=== PATIENT | male | born 1980 | race Hispanic/Latino ===

== ENCOUNTER 2024-06-01 17:10 | Emergency (ER) | payer BC ==
[~2024-06-01] VITALS: Ht 165.1 cm; Wt 95.7 kg
[2024-06-01 17:56] LABS: BASOPHILS # (AUTO) 0.07 K/uL (0.00-0.20); BASOPHILS % (AUTO) 0.7 % (0.0-5.0); EOSINOPHILS # (AUTO) 0.24 K/uL (0.00-0.70); EOSINOPHILS % (AUTO) 2.5 % (0.0-8.0); HEMATOCRIT 45.3 % (42-54); IMMATURE GRANULOCYTE ABSOLUTE 0.02 K/uL (0-1); LYMPHOCYTES # (AUTO) 2.9 K/uL (1.0-4.8); LYMPHOCYTES % (AUTO) 29.8 % (21.0-51.0); MEAN CORPUSCULAR HEMOGLOBIN 30.7 pg (27.0-33.0); MEAN CORPUSCULAR HGB CONC 34.7 g/dL (32.0-36.0); MEAN CORPUSCULAR VOLUME 88.5 fL (79-99); MONOCYTES # (AUTO) 0.6 K/uL (0.1-1.0); MONOCYTES % (AUTO) 5.9 % (3.0-13.0); NEUTROPHILS % (AUTO) 60.9 % (40.0-77.0); PLATELET COUNT (AUTO) 225 K/uL (130-400); RED BLOOD CELL COUNT(AUTO) 5.12 MIL/uL (4.50-6.20); RED CELL DISTRIBUTION WIDTH 12.3 % (11.0-15.5); WHITE BLOOD COUNT (AUTO) 9.8 K/uL (4.8-10.8)
[2024-06-01] MEDS: Solu-medROL 125MG VIAL IM ONE (17:58)
[2024-06-01] MEDS: DiphenhydrAMINE HCL 50 MG/ML VIAL IM ONE (17:58)
[2024-06-01] MEDS: FAMOTIDINE 20MG TAB PO ONE (18:01)
[2024-06-01 18:05] LABS: CREATININE 0.9 mg/dL (0.5-1.3); POTASSIUM 3.9 mmol/L (3.5-5.1)
[2024-06-01] MEDS ORDERED: LORA10TA7 PO (18:50)
[2024-06-01] MEDS ORDERED: PRED20TA3 PO (18:50)
--- NOTE | 2024-06-01 18:50 | ERN ---
General Chief Complaint: Skin Rash/Abscess Stated Complaint: RASH, ITCH Time Seen by MD: 17:11 Time Seen by Midlevel: 17:11 Source: patient History of Present Illness Initial Comments 44-year-old male who presents to the emergency department due to a rash onset one month. States the rash fluctuates comes and goes, previously seen at [facility]. Has been taking Benadryl without any improvement. states change to detergent was made, however when they noticed a rash they went back to their previous detergent. Denies cough, fever, pain or further associated symptoms. Patient denies any significant past medical history. Allergies: Coded Allergies: No Known Drug Allergies (Unverified Allergy, Unknown, 06/01/24) Home Meds Active Scripts Prednisone (Prednisone) 20 Mg Tablet, 1 TAB PO DAILY for 5 Days, #5 TAB 0 Refills Prov:CAROLE PEDRO 06/01/24 Loratadine (Loratadine) 10 Mg Tablet, 1 TAB PO DAILY for allergy symptoms for 30 Days, #30 TAB 0 Refills Prov:CAROLE PEDRO 06/01/24 Past Medical History Past Medical History: No Pertinent History Past Surgical History: None ROS Dictation Constitutional: Negative for fever,chills, and weight loss Eyes: Negative for injury, pain,redness, and discharge ENT: Negative for injury,pain or swelling Cardiovascular: Negative for chest pain, palpitations, and edema Respiratory: Negative for shortness of breath, cough, and wheezing, Abdomen/GI: Negative for abdominal pain, nausea, vomiting, diarrhea, and constipation Back: Negative for injury and pain : Negative for painful urination, bleeding or discharge MS/Extremity: Negative for injury and deformity Skin: Positive for rash Negative for discoloration Neuro: Negative for headache, weakness, numbness, tingling, and seizure Psych: Negative for suicide ideation, homicidal ideation, and hallucinations Physical Exam Physical Exam Dictation General: awake, alert, no acute distress Head/Face: Normocephalic, atraumatic Eyes: PERRL, EOMI, normal conjunctiva ENT: oral cavity clear, TMs clear, oral mucosa moist Neck: Supple, normal range of motion Cardiovascular: RRR, normal S1/S2 Respiratory: CTAB, no respiratory distress, no rales or wheezes Abdomen: Soft, non-tender, non-distended, normal bowel sounds, no guarding or rebound. Skin: Warm, dry, normal turgor, no rash MS/Extremity: Pulses equal, no cyanosis, neurovascular intact, FROM Neuro: COAx4, GCS 15, strength 5/5, CN 2-12 intact, normal cerebellar exam, normal gait, Psych: Normal behavior, mood, and affect normal Results Laboratory and Microbiology Lab and Micro Result Laboratory Tests Test 06/01/24 17:44 White Blood Count 9.8 K/uL (4.8-10.8) Red Blood Count 5.12 MIL/uL (4.50-6.20) Hemoglobin 15.7 g/dL (14.0-18.0) Hematocrit 45.3 % (42-54) Mean Corpuscular Volume 88.5 fL (79-99) Mean Corpuscular Hemoglobin 30.7 pg (27.0-33.0) Mean Corpuscular Hemoglobin Concent 34.7 g/dL (32.0-36.0) Red Cell Distribution Width 12.3 % (11.0-15.5) Platelet Count 225 K/uL (130-400) Mean Platelet Volume 10.9 fL (7.5-10.5) H Immature Granulocyte % (Auto) 0.2 % (0-1) Neutrophils (%) (Auto) 60.9 % (40.0-77.0) Lymphocytes (%) (Auto) 29.8 % (21.0-51.0) Monocytes (%) (Auto) 5.9 % (3.0-13.0) Eosinophils (%) (Auto) 2.5 % (0.0-8.0) Basophils (%) (Auto) 0.7 % (0.0-5.0) Neutrophils # (Auto) 6.0 K/uL (1.8-7.7) Lymphocytes # (Auto) 2.9 K/uL (1.0-4.8) Monocytes # (Auto) 0.6 K/uL (0.1-1.0) Eosinophils # (Auto) 0.24 K/uL (0.00-0.70) Basophils # (Auto) 0.07 K/uL (0.00-0.20) Absolute Immature Granulocyte (auto 0.02 K/uL (0-1) Nucleated Red Blood Cells 0.0 % (0.0-0.19) Sodium Level 139 mmol/L (136-145) Potassium Level 3.9 mmol/L (3.5-5.1) Chloride Level 100 mmol/L (101-111) L Carbon Dioxide Level 35 mmol/L (21-32) H Blood Urea Nitrogen 10 mg/dL (7-18) Creatinine 0.9 mg/dL (0.5-1.3) Glomerular Filtration Rate Calc 108 mL/min (>90) Random Glucose 124 mg/dL (70-105) H Total Calcium 8.6 mg/dL (8.5-10.1) Labs Reviewed?: Yes MDM MDM: Differential diagnosis: Maculopapular rash, allergic reaction, hives Rationale: 44-year-old male who presents to the emergency department due to a rash onset one month. States the rash fluctuates comes and goes, previously seen at [facility]. Has been taking Benadryl without any improvement. states change to detergent was made, however when they noticed a rash they went back to their previous detergent. Denies cough, fever, pain or further associated symptoms. Patient denies any significant past medical history. Labs obtained are nonspecific. The patient was administered Solu-Medrol, famotidine, and Benadryl in the ED. On re-examination patient's rash had improved. The patient and were educated on findings, diagnosis and treatment. Patient was advised to follow up with PCP. Return to the emergency department if any worsening symptoms. Patient verbalized understanding. Patient stable for discharge. There are no social concerns with this patient. I independently interpreted the test that were performed, results were reviewed by me and considered findings on radiology if ordered. Medical management and examination interpretation discussions were had by me with other qualified healthcare professionals as indicated for the patient's care. ED Course Orders Procedure Category Date Status Time Cbc With Differential LAB 06/01/24 Complete 17:32 Basic Metabolic Panel LAB 06/01/24 Complete 17:32 Methylprednisolone PHA 06/01/24 Complete Succ 125mg (Solu-Medr 18:00 Diphenhydramine Hcl PHA 06/01/24 Complete (Benadryl Inj) 18:00 Famotidine 20mg Tab PHA 06/01/24 Complete (Pepcid 20mg Tab) 18:00 Current Medications Medications (Trade) Dose Ordered Sig/Robby Route PRN Reason Start Time Stop Time Status Last Admin Dose Admin Diphenhydramine HCl (BENAdryl INJ) 25 mg ONCE ONCE IM 06/01/24 18:00 06/01/24 18:01 DC 06/01/24 17:58 Famotidine (Pepcid 20mg Tab) 20 mg ONCE ONCE PO 06/01/24 18:00 06/01/24 18:01 DC 06/01/24 18:01 Methylprednisolone Sodium Succinate (Solu-medROL 125MG) 125 mg ONCE ONCE IM 06/01/24 18:00 06/01/24 18:01 DC 06/01/24 17:58 Vital Signs Date Time Temp Pulse Resp B/P (MAP) Pulse Ox O2 Delivery O2 Flow Rate FiO2 06/01/24 19:15 97.9 65 20 124/79 96 Room Air* 0 21 06/01/24 18:13 97.9 65 20 118/75 98 Room Air* 0 21 06/01/24 17:19 98.1 75 20 119/73 96 Room Air 0 DX & DISP Disposition: Discharge Departure Impression: Primary Impression: Maculopapular rash, generalized Condition: Stable Scripts Prednisone (Prednisone) 20 Mg Tablet 1 TAB PO DAILY for 5 Days, #5 TAB 0 Refills Prov: CAROLE PEDRO 06/01/24 Loratadine (Loratadine) 10 Mg Tablet 1 TAB PO DAILY for allergy symptoms for 30 Days, #30 TAB 0 Refills Prov: CAROLE PEDRO 06/01/24 Additional Instructions: Discharge home. Rest. Follow up with primary care DrAna in 24 hours. Return to the ER for any acute changes or worsening symptoms. If any medications were prescribed take as directed. Okay to continue home medications unless otherwise discussed during your visit in the emergency room today. Patient was also advised to follow-up with primary care physician in 1 to 2 days for continued monitoring. Referrals: YESENIA HARRISON (PCP) I performed the substantive portion of the visit. I have reviewed and personally made and approve the management plan that is documented in the notes by myself or the KIMBERLY. I acknowledge full responsibility for the patient's management plan. CAROLE PEDRO Jun 01, 2024 18:50
[2024-06-01 19:15] VITALS: BP 124/79; PULSE 65; RESP 20; TEMP 97.9; O2SAT 96
== END 2024-06-01 19:20 | disposition home or self-care (01) ==
LOC: EDH 17:10
DX: R21 Rash and other nonspecific skin eruption (principal); Z79.52 Long term (current) use of systemic steroids
CPT/HCPCS: 99284; 80048; 85025; 36415; 96372 ×2; J2919; J1200